=== PATIENT | female | born 1930 | race Caucasian/White ===

== ENCOUNTER 2017-08-22 08:38 | Day surgery (SDC) | payer OTHER ==
[~2017-08-22 08:38] MED LIST: INTESTINEX1 CA1 PO; RECTICARE30 GM TP; TRAM1TAB98 PO
== END 2017-08-22 13:15 | disposition home or self-care (01) ==
LOC: AMB-ENDOS 08:38
DX: D12.3 Benign neoplasm of transverse colon (principal); K57.30 Diverticulosis of large intestine without perforation or abscess without bleeding